=== PATIENT | male | born 1990 | race African-American/Black ===

== ENCOUNTER 2017-05-26 12:49 | Emergency (ER) | payer MEDICAID ==
[~2017-05-26] VITALS: Ht 190.5 cm; Wt 99.0 kg
[2017-05-26 12:56] VITALS: BP 137/84
[2017-05-26] MEDS ORDERED: IBUPROFEN 800MG TABLET PO ONE (13:45)
== END 2017-05-26 14:07 | disposition home or self-care (01) ==
LOC: ER 13:14
DX: H92.01 Otalgia, right ear (principal); H92.11 Otorrhea, right ear; F17.200 Nicotine dependence, unspecified, uncomplicated
CPT/HCPCS: 99283

== ENCOUNTER 2019-04-21 15:45 | Emergency (ER) | payer SELFPAY ==
[~2019-04-21] VITALS: Ht 190.5 cm; Wt 106.0 kg
[2019-04-21] MEDS ORDERED: KETOROLAC 60MG/2ML VIAL IM STA (16:59)
[2019-04-21] MEDS ORDERED: BACITRACIN ZINC OINT UDPKT TOP ONE (18:45)
[2019-04-21] MEDS ORDERED: SULFAMETHOXAZOLE/TRIMETHOPRIM 800/160MG TABLET PO NR (18:45)
[2019-04-21] MEDS ORDERED: BACITRACIN 15GM TUBE TOP NR (19:00)
[2019-04-21 19:16] VITALS: BP 125/79
== END 2019-04-21 19:19 | disposition home or self-care (01) ==
LOC: ER 17:02
DX: S62.347A Nondisplaced fracture of base of fifth metacarpal bone, left hand, initial encounter for closed fracture (principal); Y04.0XXA Assault by unarmed brawl or fight, initial encounter; Y93.89 Activity, other specified; Y92.89 Other specified places as the place of occurrence of the external cause
CPT/HCPCS: 73130; 96372; 99283; J1885